=== PATIENT | male | born 1945 | race Caucasian/White ===

== ENCOUNTER 2019-08-08 06:58 | Day surgery (SDC) | payer BC ==
--- NOTE | 2019-08-01 14:43 | HP ---
DATE: 08/08/2019 HISTORY OF PRESENT ILLNESS: Patient is a 74 year-old male who presents with right-sided inguinal pain for 6 months. He has been seeing a bulge in the area worse with cough. He has been having a little bit more pain. PAST MEDICAL HISTORY: High BP. ALLERGIES: NEGATIVE. PAST SURGERIES: Right hip repair and a disc removed. SOCIAL HISTORY: Negative. FAMILY HISTORY: Leukemia. REVIEW OF SYSTEMS: CONSTITUTIONAL: Denies fever or chills. CHEST: Denies shortness of breath or cough. CVS: No chest pain. ABDOMEN: Denies pain, nausea, vomiting, or rectal bleeding. GENITOURINARY: Denies dysuria or hematuria. Reports right inguinal pain. EXTREMITIES: Denies swelling. PHYSICAL EXAMINATION: GENERAL: No acute distress. CHEST: Nonlabored. No shortness of breath. CVS: Regular rate and rhythm. ABDOMEN: Soft, nontender, nondistended. Moderate right inguinal hernia. EXTREMITIES: No swelling. NEURO: Alert and oriented. PSYCH: Appropriate. IMPRESSION: 1. SYMPTOMATIC MODERATE RIGHT INGUINAL HERNIA. PLAN: Repair of right inguinal hernia with mesh. This report was dictated for Dr. Sheets by Yuliana Watkins NP.
[2019-08-08] MEDS ORDERED: Zofran 4 MG/2 ML VIAL ONE (07:58)
[2019-08-08] MEDS ORDERED: Decadron 4 MG INJ ONE (07:58)
[2019-08-08] MEDS ORDERED: Xylocaine-Mpf 2% 5 Ml Vial ONE (07:58)
[2019-08-08] MEDS ORDERED: SUBLIMAZE 100 MCG/2 ML ONE (07:58)
[2019-08-08] MEDS ORDERED: TORAdol 30 mg Injection ONE (07:58)
[2019-08-08] MEDS ORDERED: DIPRIVAN 200 MG/20 ML IV ONE (07:58)
[2019-08-08] MEDS ORDERED: CEFAZOLIN 2 GM-D5W BAG** 2 GM/50 ML ML IV ONE (07:58)
[2019-08-08] MEDS ORDERED: Lactated Ringers 0 ML IV ONE (07:59)
[2019-08-08] MEDS ORDERED: Lactated Ringers 1,000 ML IV SCH (08:00)
[2019-08-08] MEDS ORDERED: CEFAZOLIN 2 GM-D5W BAG** 2 GM/50 ML ML IV SCH (08:00)
[2019-08-08] MEDS ORDERED: Lactated Ringers 1,000 ML IV ONE (08:02)
[2019-08-08] MEDS ORDERED: Sensorcaine 0.25% 10 ML ONE ×2 (08:02→10:37)
[2019-08-08] MEDS ORDERED: KEFZOL 1 GM ONE (08:02)
[2019-08-08] MEDS ORDERED: Ketamine HCl 50 MG/ML ONE (08:19)
[2019-08-08 14:52] VITALS: BP 172/90; PULSE 62; O2SAT 99
--- NOTE | 2019-08-09 14:27 | OP ---
SURGERY DATE/TIME: 08/08/2019 0950 PREOPERATIVE DIAGNOSIS: Recurrent right inguinal hernia. POSTOPERATIVE DIAGNOSIS: Recurrent right inguinal hernia indirect. PROCEDURE: Right inguinal herniorrhaphy with mesh. SURGEON: Josh Sheets M.D. ANESTHESIA: General. COMPLICATIONS: None. CONDITION: Stable. INDICATION: The patient presents with a very generous right inguinal hernia. He had incision here some 30 or 40 years ago. DESCRIPTION OF PROCEDURE: He was taken to surgery. General anesthetic. Routine prep and drape. Modern incision was fashioned. 0.25% Marcaine 20 cc. External oblique open. Cord exposed. Cord skeletonized. A 4 inch indirect hernia sac certainly thin and petite but long. It was taken with 0 Prolene after dissection. High ligation had been completed. The direct area was satisfactory. A 1 x 4 mesh was secured to symphysis, secured in Eliot's ligament fashion throughout. Good approximation and repair. Internal ring was one clamp tight. Cord, ilioinguinal nerve laid back in natural position. External oblique closed with 0 Vicryl. Michael fascia closed with 2-0 Vicryl. Skin closed with 4-0 Vicryl. Steri-Strips applied. Sterile dressing applied. The patient tolerated the procedure satisfactorily.
== END 2019-08-08 12:35 | disposition home or self-care (01) ==
LOC: SDC 06:58
PROVIDERS: ATTEND Surgery
DX: K40.91 Unilateral inguinal hernia, without obstruction or gangrene, recurrent (principal)
CPT/HCPCS: 88302; 99100; C1781; J0690; J1100; J1885; J2405; J2704; J3010